=== PATIENT | female | born 1945 | race Caucasian/White ===

== ENCOUNTER 2016-04-15 12:39 | Inpatient (IN) | payer OTHER ==
--- NOTE | 2016-04-15 13:04 | CPEKG ---
Heart Rate: 116 RR Interval: 517 QRSD Interval: 146 QT Interval: 364 QTC Interval: 506 QRS [place]: -31 T Wave [place]: 129 EKG Severity - ABNORMAL ECG - EKG Impression: ATRIAL FIBRILLATION EKG Impression: LEFT BUNDLE BRANCH BLOCK EKG Impression: ATRIAL FIB IS NEW IN COMPARISON TO PRIOR, BUT LBBB IS UNCHANGED Electronically Signed By: Bhavesh Brannon 17-Apr-2016 13:08:02
[2016-04-15] MEDS ORDERED: ASPIRIN 81 MG CHEWABLE TAB ONE (13:14)
[2016-04-15 13:30] LABS: % IMMATURE GRANULYOCYTES 0.4 % (0.0-1.1); ABSOLUTE IMMATURE GRANULOCYTES 0.03 10^3/uL (0.00-0.10); ADD DIFF? NO; ADD MORPH? NO; ADD SCAN? NO; ATYPICAL LYMPHOCYTE FLAG 0 (0-99); FRAGMENT RBC FLAG 0 (0-99); HEMATOCRIT 40.9 % (38.0-47.0); HEMOGLOBIN 13.7 g/dL (12.6-16.3); LEFT SHIFT FLG 0 (0-99); LIPEMIA HEMOLYSIS FLAG 80 (0-99); MEAN CELL HEMOGLOBIN 32.7 pg (27.9-34.1); MEAN CELL HEMOGLOBIN CONCENTR. 33.5 g/dL (32.4-36.7); MEAN CELL VOLUME 97.6 fL (81.5-99.8); MEAN PLATELET VOLUME 11.5 fL (8.7-11.7); PLATELET CLUMPS FLAG 0 (0-99); PLATELET COUNT 297 10^3/uL (150-400); RED BLOOD CELL COUNT 4.19 10^6/uL (4.18-5.33); RED CELL DISTRIBUTION WIDTH 13.3 % (11.5-15.2)
[2016-04-15] MEDS ORDERED: DILTIAZEM 25 MG/5 ML VIAL IVP ONE (13:35)
--- NOTE | 2016-04-15 13:36 | UCPHY ---
H & P Patient Type: New Chief Complaint Nursing Narrative: increased sob With exertion. Chest pain / pressure since yesterday . Dizzy at times. Sent for r/o [place] Source: Patient Exam Limitations: No limitations - Personal History Current Tetanus Diphtheria and Acellular Pertussis (TDAP): Yes - Medical/Surgical History Hx Chronic Respiratory Disease: Yes Hx Cardiac Disease: Yes Other PMH: Heart surgery at 6 yo. COPD. O2 at night. Tonsils ,tubal ligation ortho surgery - Family History Significant Family History: Heart disease - Social History Smoking Status: Former smoker Time Seen by Provider: 04/15/16 12:53 HPI/ROS: CHIEF COMPLAINT: increased shortness of breath with exertion, chest pressure HISTORY OF PRESENT ILLNESS: 70-year-old female with history of coronary artery disease diabetes and COPD presents increased shortness of with exertion and an episode of chest pressure last night along with an episode this morning. Patient reports she has chronic shortness of breath with exertion, yesterday at work this felt worse, last night she had an episode of 2 to 3/10 chest heaviness that lasted for a few minutes at rest, she woke up this morning a 1 to 2/10 chest pressure that lasted a few minutes that started after getting up and walking from her bedroom to the kitchen. Patient reports no other associated symptoms. Patient uses oxygen at night. She reports a open heart surgery at age 6 for a pulmonary valvulotomy. Patient denies history of any arrhythmia. Denies CHF history. Patient's mother of an NY at age 63, father had coronary artery disease, sister with coronary artery disease and brother had an NY at age 58. Patient takes aspirin daily, quit smoking 10 years ago. No recent surgeries, no recent travel. She denies nausea, diaphoresis. Patient is seen by [facility]. She reports she had a normal stress test 1 year ago. REVIEW OF SYSTEMS: A comprehensive 10 point review of systems is otherwise negative aside from elements mentioned in the history of present illness. (Nataliia Padgett) - Physical Exam Exam: Physical Exam Gen: Alert and Oriented, NAD HEENT: PERRL, moist mucous membranes NECK: no meningismus, no jvd CV: Tachy rate and irregular rhythm, systolic murmur PULM: Diminished throughout, no wheezes ABDOMEN: Obese, soft, non tender to palpation, BS present BACK: No CVA tenderness NEURO: Neurologically grossly intact EXTREMITIES: Trace pitting edema below the knees, equal pulses x 4 extremities SKIN: no rash or break in skin on exposed skin PSYCH: answers questions appropriately. (Nataliia Padgett) Constitutional: Initial Vital Signs Temperature (C) 36.8 C 04/15/16 12:58 Heart Rate 120 H 04/15/16 12:58 Respiratory Rate 18 04/15/16 12:58 Blood Pressure 135/81 H 04/15/16 12:58 O2 Sat (%) 89 L 04/15/16 12:58 O2 Delivery Mode Room Air O2 (L/minute) 3 Allergies/Adverse Reactions: latex [Latex] Allergy (Intermediate, Verified 04/15/16 13:06) Home Medications: Medication Instructions Recorded Albuterol Hfa Anes Only [Proair 2 puffs IH DAILY PRN 04/15/16 Hfa Icu (*)] Ascorbic Acid [Vitamin C 500 mg 1,000 mg PO DAILY 04/15/16 (*)] Aspirin [Aspirin 325 mg (*)] 325 mg PO DAILY 04/15/16 Calcium Carbonate [Oyster Shell 500 mg PO DAILY 04/15/16 Calcium 500 mg (*)] Carvedilol [Coreg (*)] 6.25 mg PO BIDMEAL 04/15/16 Cholecalciferol Vit D3 [Vitamin D3 2,000 units PO DAILY 04/15/16 (*)] Furosemide [Lasix 40 MG (*)] 40 mg PO DAILY 04/15/16 [place]-3 Fatty Acids [Fish Oil 1000 1,000 mg PO DAILY 04/15/16 mg (*)] SIMVASTATIN 10 mg PO DAILY 04/15/16 Sertraline HCl [Zoloft 100mg (*)] 100 mg PO BID 04/15/16 Tiotropium Inhaler [Spiriva 18 mcg IH DAILY 04/15/16 Handihaler] Vitamin B Complex [B Complex] 1 tab PO DAILY 04/15/16 buPROPion [Wellbutrin 75mg (*)] 75 mg PO BID 04/15/16 Medical Decision Making - Diagnostics EKG Interpretation: EKG shows atrial fibrillation with a rate of 116, left bundle-branch block. EKG from 2013 shows a left bundle-branch block. (Nataliia Padgett) Imaging: Chest x-ray independently reviewed by me- IMPRESSION: 1. Persistent elevated left hemidiaphragm with surgical clips in the left axillary region. 2. Bronchitis with bilateral peribronchial thickening. 3. No definite acute pneumonia. 4. Consider CT chest imaging if clinically indicated. Dictated By: Francisco Robledo (Nataliia Padgett) ED Course/Re-evaluation: Patient was placed on the vacuum truck driver, she was given 325 mg of aspirin to chew, he was placed on oxygen. IV established, CBC, chemistry panel, troponin, BNP, D-dimer ordered, EKG, chest x-ray ordered. EKG shows a atrial fibrillation , rate 117 with a left bundle-branch block, this was compared to an EKG in 2013 where she had a left bundle branch block with a sinus arrhythmia. Patient has a history of coronary artery disease, diabetes and COPD. Last catheterization was in 2012 showing moderate coronary artery disease and a normal left ventricular systolic function. Patient reports having a normal stress test last year. Patient has a significant family history of heart disease with a mother dying of a NY at age 63, her brother and sister both with coronary artery disease, brother had an [place] at age 58. CBC an chemistry panel unremarkable, troponin is negative, D-dimer is negative, BNP is 2460. Patient is given 10 mg diltiazem IV which brought her heart rate down to 88, she continues in atrial fibrillation. She continues with no chest pain. Due to the patient's new onset atrial fibrillation, increased shortness of breath on exertion and chest pressure I think she warrants a hospital admission for cardiac rule out. The hospitalist and [facility] have been paged. 245pm- patient admitted to the hospitalist Dr. Bashir Cody. TANVIR Alaniz with [facility] was consulted and will see the patient in the hospital. The patient is comfortable with the plan for admission. She is refusing an ambulance transport to [facility] but agrees to admission and will have a family member drive her there. 4pm-patient has been assigned an inpatient room at [facility]. She will be transferred by a friend. She denies chest pain. (Nataliia Padgett) Differential Diagnosis: Diagnosis considered but not limited to new onset AFib, congestive heart failure , coronary artery disease, pulmonary embolism, COPD exacerbation. (Nataliia Padgett) Other Provider: The patient was evaluated and managed by the nurse practitioner, Nataliia Padgett. My co-signature indicates that I have reviewed this chart and I agree with the findings and plan of care as documented. I am the secondary supervising physician. (Shanon Ron) - Data Points Laboratory Results: Laboratory Results 04/15/16 13:11 04/15/16 13:11 Medications Given: Discontinued Medications Diltiazem HCl (Cardizem 25 Mg/5 Ml Vial) 10 mg IVP EDNOW ONE Stop: 04/15/16 13:36 Last Admin: 04/15/16 14:10 Dose: 10 mg Enoxaparin Sodium (Lovenox) 75 mg SC BID TREVOR Stop: 10/12/16 15:59 Last Admin: 04/15/16 16:33 Dose: 75 mg Departure - Departure Disposition: [facility] Inpatient Acute Clinical Impression: Chest pain, New onset a-fib Condition: Good - PQRS PQRS Measurement: 134: Depression screening and followup, PRIME MD-PHQ2 (12 years and older) Over the last 2 weeks, how often have you been bothered by any of the following problems? 1. Feeling down, depressed, or hopeless? 2. Little interest or pleasure in doing things? Patient answered no to both 1 and 2 130: Documentation of medications. Reviewed all patient medications, doses, route and frequency. 226: Do you smoke? No. 47: 65 and older: Advanced care planning. Patient refused. 51: 18 years old and older with diagnosis of COPD, spirometry performance. Spirometry not performed; equipment not available. 52: 18 years old and older with COPD and symptoms of COPD or FEV1<60% predicted prescribed a B Agonist. Spirometry not performed; equipment not available. (Nataliia Padgett)
[2016-04-15 13:42] LABS: INR 0.91 (0.83-1.16); PROTIME(PATIENT) 12.1 SEC (12.0-15.0)
[2016-04-15 13:43] LABS: ANION GAP 12 mEq/L (8-16); APTT 29.2 SEC (23.0-38.0); CALCIUM 9.7 mg/dL (8.5-10.4); CARBON DIOXIDE 29 mEq/l (22-31); CHLORIDE 102 mEq/L (97-110); CREATININE 0.8 mg/dL (0.6-1.0); GLOMERULAR FILTRATION RATE > 60; GLUCOSE 100 mg/dL (70-100); POTASSIUM 4.3 mEq/L (3.5-5.2); SODIUM 143 mEq/L (134-144)
[2016-04-15 13:56] LABS: TROPONIN I < 0.012 ng/mL (0-0.034)
--- NOTE | 2016-04-15 14:06 | DX ---
Chest, Two Views at 1340 hours History: Chest pain. Comparison: May 2015 Findings: Cardiac silhouette is moderately enlarged. Elevated left hemidiaphragm persists. Surgical c lips in left axillary region. Bilateral peribronchial thickening. No definite acute pneumonia. IMPRESSION: 1. Persistent elevated left hemidiaphragm with surgical clips in the left axillary region. 2. Bronchitis with bilateral peribronchial thickening. 3. No definite acute pneumonia. 4. Consider CT chest imaging if clinically indicated.
--- NOTE | 2016-04-15 15:10 | CPEKG ---
Heart Rate: 82 RR Interval: 732 QRSD Interval: 152 QT Interval: 428 QTC Interval: 500 QRS [place]: -27 T Wave [place]: 124 EKG Severity - ABNORMAL ECG - EKG Impression: ATRIAL FLUTTER, A-RATE 294 EKG Impression: LEFT BUNDLE BRANCH BLOCK Electronically Signed By: Bhavesh Brannon 17-Apr-2016 13:08:15
--- NOTE | 2016-04-15 15:37 | PDGENHP ---
History and Physical - Chief Complaint Acute shortness of breath - History of Present Illness PCP: Dr. Hardy Cardiology: Dr. Agustin HPI: 62-year-old female presenting with acute shortness of breath characterized as difficulty breathing exacerbated with exertion, associated with chest heaviness and dizziness. Onset of her shortness of breath has been several years ago but the onset of the acute worsening has been over the past 24 hours. She has use supplemental oxygen at night to alleviate her symptoms and she also utilizes albuterol inhaler fairly regularly. She reports that the shortness of breath is exacerbated by ambulation and exertion. She denies any recent lower extremity edema and reports that she has been adherent to all of her home medications. She denies any overt chest pain. She also denies any infectious symptoms. History Information - Allergies/Home Medication List Allergies/Adverse Reactions: latex [Latex] Allergy (Intermediate, Verified 04/15/16 13:06) Home Medications: Albuterol Hfa Anes Only [Proair Hfa Icu (*)] 2 puffs IH DAILY PRN 04/15/16 [ Last Taken 04/14/16] Ascorbic Acid [Vitamin C 500 mg (*)] 1,000 mg PO DAILY 04/15/16 [Last Taken ] Aspirin [Aspirin 325 mg (*)] 325 mg PO DAILY 04/15/16 [Last Taken 04/15/16] Calcium Carbonate [Oyster Shell Calcium 500 mg (*)] 500 mg PO DAILY 04/15/16 [ Last Taken 04/15/16] Carvedilol [Coreg (*)] 6.25 mg PO BIDMEAL 04/15/16 [Last Taken 04/15/16 08:00] Cholecalciferol Vit D3 [Vitamin D3 (*)] 2,000 units PO DAILY 04/15/16 [Last Taken 04/15/16] Furosemide [Lasix 40 MG (*)] 40 mg PO DAILY 04/15/16 [Last Taken 04/15/16] [place]-3 Fatty Acids [Fish Oil 1000 mg (*)] 1,000 mg PO DAILY 04/15/16 [Last Taken 04/15/16] SIMVASTATIN 10 mg PO DAILY 04/15/16 [Last Taken 04/15/16] Sertraline HCl [Zoloft 100mg (*)] 100 mg PO BID 04/15/16 [Last Taken 04/15/16 08 :00] Tiotropium Inhaler [Spiriva Handihaler] 18 mcg IH DAILY 04/15/16 [Last Taken ] Vitamin B Complex [B Complex] 1 tab PO DAILY 04/15/16 [Last Taken 04/15/16] buPROPion [Wellbutrin 75mg (*)] 75 mg PO BID 04/15/16 [Last Taken 04/15/16 08:00 ] I have personally reviewed and updated: family history, medical history, social history, surgical history - Past Medical History coronary artery disease (Last cardiac catheterization in 2012 with 70% stenosis in LAD and OM1, last nuclear stress test was October of 2015 and was reportedly nonischemic), COPD (Baseline shortness of breath), diabetes type 2 (Dietary management) Additional medical history: Left bundle branch block - Surgical History Additional surgical history: Patient had valve surgery at age 6 - Family History Additional family history: Patient's brother had heart issues and underwent CABG at age 58, her sister had cancer as well as heart issues, her mother had a myocardial infarction in her 60s - Social History Smoking Status: Former smoker Alcohol Use: Other (Former alcoholic) Drug Use: None Additional social history: Independent in her ADLs Review of Systems ROS: 10pt was reviewed & negative except for what was stated in HPI & below Cardiac: Reports: chest pain, lightheadedness Respiratory: Reports: shortness of breath Physical Exam Temp Pulse Resp BP Pulse Ox 36.8 C 84 18 122/77 H 94 04/15/16 12:58 04/15/16 14:48 04/15/16 14:48 04/15/16 14:48 04/15/16 14:48 Constitutional: no apparent distress, appears nourished, not in pain Eyes: PERRL, anicteric sclera, EOMI Ears, Nose, Mouth, Throat: moist mucous membranes, hearing normal, ears appear normal, no oral mucosal ulcers Cardiovascular: irregularly irregular, tachycardia, No systolic murmur, No edema Respiratory: reduced air movement (Reduced inspiratory and expiratory movement diffusely throughout), No expiratory wheeze, No inspiratory crackles, No bronchial breath sounds, No respiratory distress Gastrointestinal: normoactive bowel sounds, soft, non-tender abdomen, no palpable masses Skin: warm, normal color, no rashes or abrasions, no fluctuance, no induration, No mottled Neurologic: AAOx3, sensation intact bilaterally, No weakness Psychiatric: interacting appropriately, not anxious, not encephalopathic, thought process linear Lab Data & Imaging Review 04/15/16 13:11 04/15/16 13:11 WBC 7.63 10^3/uL (3.80-9.50) 04/15/16 13:11 RBC 4.19 10^6/uL (4.18-5.33) 04/15/16 13:11 Hgb 13.7 g/dL (12.6-16.3) 04/15/16 13:11 Hct 40.9 % (38.0-47.0) 04/15/16 13:11 MCV 97.6 fL (81.5-99.8) 04/15/16 13:11 MCH 32.7 pg (27.9-34.1) 04/15/16 13:11 MCHC 33.5 g/dL (32.4-36.7) 04/15/16 13:11 RDW 13.3 % (11.5-15.2) 04/15/16 13:11 Plt Count 297 10^3/uL (150-400) 04/15/16 13:11 MPV 11.5 fL (8.7-11.7) 04/15/16 13:11 Neut % (Auto) 59.1 % (39.3-74.2) 04/15/16 13:11 Lymph % (Auto) 27.9 % (15.0-45.0) 04/15/16 13:11 Clinch % (Auto) 9.6 % (4.5-13.0) 04/15/16 13:11 Eos % (Auto) 2.2 % (0.6-7.6) 04/15/16 13:11 Baso % (Auto) 0.8 % (0.3-1.7) 04/15/16 13:11 Nucleat RBC Rel Count 0.0 % (0.0-0.2) 04/15/16 13:11 Absolute Neuts (auto) 4.51 10^3/uL (1.70-6.50) 04/15/16 13:11 Absolute Lymphs (auto) 2.13 10^3/uL (1.00-3.00) 04/15/16 13:11 Absolute Monos (auto) 0.73 10^3/uL (0.30-0.80) 04/15/16 13:11 Absolute Eos (auto) 0.17 10^3/uL (0.03-0.40) 04/15/16 13:11 Absolute Basos (auto) 0.06 10^3/uL (0.02-0.10) 04/15/16 13:11 Absolute Nucleated RBC 0.00 10^3/uL (0-0.01) 04/15/16 13:11 Immature Gran % 0.4 % (0.0-1.1) 04/15/16 13:11 Immature Gran # 0.03 10^3/uL (0.00-0.10) 04/15/16 13:11 PT 12.1 SEC (12.0-15.0) 04/15/16 13:11 INR 0.91 (0.83-1.16) 04/15/16 13:11 APTT 29.2 SEC (23.0-38.0) 04/15/16 13:11 D-Dimer 0.29 ug/mLFEU (0.00-0.50) 04/15/16 13:11 Sodium 143 mEq/L (134-144) 04/15/16 13:11 Potassium 4.3 mEq/L (3.5-5.2) 04/15/16 13:11 Chloride 102 mEq/L (97-110) 04/15/16 13:11 Carbon Dioxide 29 mEq/l (22-31) 04/15/16 13:11 Anion Gap 12 mEq/L (8-16) 04/15/16 13:11 BUN 20 mg/dL (7-23) 04/15/16 13:11 Creatinine 0.8 mg/dL (0.6-1.0) 04/15/16 13:11 Estimated GFR > 60 04/15/16 13:11 Glucose 100 mg/dL (70-100) 04/15/16 13:11 Calcium 9.7 mg/dL (8.5-10.4) 04/15/16 13:11 Troponin I < 0.012 ng/mL (0-0.034) 04/15/16 13:11 NT-Pro-B Natriuret Pep 2460 pg/mL (0-125) H 04/15/16 13:11 Visualized and Interpreted Chest x-ray results: Yes Chest X-Ray results: other (Peribronchial thickening, elevated left hemidiaphragm) Visualized and Interpreted EKG results: Yes EKG Interpretation: Positive for: left bundle branch block (With atrial fibrillation) Assessment & Plan Assessment: 70-year-old female presenting with new onset atrial fibrillation with acute rapid ventricular response in the setting of known coronary artery disease Plan: 1. Atrial fibrillation. Acute, rapid ventricular response, new problem, further workup indicated. Unclear precipitant, given her underlying coronary artery disease, ischemia is a significant concern vs. COPD vs. beta-agonist effect -cycle cardiac enzymes -discussed with Nataliia Padgett and Dr. Ron in urgent care, they have recommended that this patient be risk stratified under observation and the patient is unsafe to be discharged from the urgent care at this time -status post 10 mg of IV diltiazem with improvement in rate but remaining in an atrial fibrillation rhythm -given the patient received carvedilol at baseline, I will increase carvedilol dosing to 12.5mg at this time and monitor for acute rapid ventricular response on telemetry -provide systemic anticoagulation given patient's potential of chemically cardioverting versus DC cardioversion tomorrow -given patient's chads Vasc score, she will require systemic anticoagulation moving forward as an outpatient -I have consulted with Cardiology and they will evaluate the patient determine whether she should undergo cardiac catheterization tomorrow to rule out obstructive coronary disease as the cause of her new onset AFib 2. Coronary artery disease. Chronic, continue home medications once reconciled -monitor for signs of acute CHF in the setting of above -cont ASA/statin -get lipid panel 3. COPD. Chronic, treat cough -poor exp air movement, place on schedule xopenex/atrovent nebs and reassess in AM, hold on steroids Diet. Cardiac with NPO after midnight for possible cath in a.m. Prophylaxis. High risk patient, therapeutic Lovenox for AFib Code. Full Disposition. Anticipated discharge is 04/16/2016, pending further workup and clinical stabilization of condition outlined above. If patient requires greater than 48 hours inpatient hospitalization for reasonable medical necessity , she will be upgraded to inpatient status tomorrow.
[2016-04-15] MEDS ORDERED: ENOXAPARIN 80 MG/0.8 ML SYR SC SCH (16:00)
[2016-04-15] MEDS ORDERED: ENOXAPARIN 80 MG/0.8 ML SYR SC ONE (16:22)
[2016-04-15] MEDS: ENOXAPARIN 80 MG/0.8 ML SYR SC SCH (18:21)
[2016-04-15] MEDS: CARVEDILOL 6.25 MG TAB PO SCH (20:55)
[2016-04-15] MEDS: buPROPion 75 MG TAB PO SCH (20:55)
[2016-04-15] MEDS: LEVALBUTEROL 0.63 MG/3 ML DEYVIAL IH SCH ×2 (20:56→22:12)
[2016-04-15] MEDS: IPRATROPIUM BROMIDE 0.5 MG/2.5 ML DEYVIAL IH SCH ×2 (20:56→22:12)
[2016-04-15] MEDS: SERTRALINE HCL 100 MG TAB PO SCH (20:57)
[2016-04-16 04:02] LABS: % IMMATURE GRANULYOCYTES 0.3 % (0.0-1.1); ABSOLUTE IMMATURE GRANULOCYTES 0.02 10^3/uL (0.00-0.10); ADD DIFF? NO; ADD MORPH? NO; ADD SCAN? NO; ATYPICAL LYMPHOCYTE FLAG 10 (0-99); FRAGMENT RBC FLAG 0 (0-99); HEMATOCRIT 40.3 % (38.0-47.0); HEMOGLOBIN 13.1 g/dL (12.6-16.3); LEFT SHIFT FLG 0 (0-99); LIPEMIA HEMOLYSIS FLAG 80 (0-99); MEAN CELL HEMOGLOBIN CONCENTR. 32.5 g/dL (32.4-36.7); MEAN CELL VOLUME 98.5 fL (81.5-99.8); PLATELET CLUMPS FLAG 10 (0-99); PLATELET COUNT 241 10^3/uL (150-400); RED BLOOD CELL COUNT 4.09 10^6/uL (4.18-5.33); RED CELL DISTRIBUTION WIDTH 13.4 % (11.5-15.2)
[2016-04-16 04:22] LABS: ANION GAP 11 mEq/L (8-16); CALCIUM 8.9 mg/dL (8.5-10.4); CARBON DIOXIDE 29 mEq/l (22-31); CHLORIDE 107 mEq/L (97-110); CHOLESTEROL 126 mg/dL (140-220); CHOLESTEROL/HDL RATIO 2.25 RATIO (1.00-4.44); GLOMERULAR FILTRATION RATE 55; GLUCOSE 91 mg/dL (70-100); HIGH DENSITY LIPOPROTEIN 56 mg/dL (40-85); LDL/HDL RATIO 0.88 RATIO (1.00-3.22); LOW DENSITY LIPOPROTEIN 49 mg/dL (80-100); NON-HIGH DENSITY LIPOPROTEIN 70 mg/dL (90-129); POTASSIUM 4.2 mEq/L (3.5-5.2); SODIUM 147 mEq/L (134-144); TRIGLYCERIDE 106 mg/dL (35-135); VERY LOW DENSITY LIPOPROTEINS 21 mg/dL (8-25)
[2016-04-16] MEDS: IPRATROPIUM BROMIDE 0.5 MG/2.5 ML DEYVIAL IH SCH ×4 (06:22→23:38)
[2016-04-16] MEDS: LEVALBUTEROL 0.63 MG/3 ML DEYVIAL IH SCH ×4 (06:22→23:38)
[2016-04-16] MEDS: CARVEDILOL 6.25 MG TAB PO SCH ×2 (08:26→20:11)
[2016-04-16] MEDS ORDERED: ASPIRIN 325 MG TAB PO SCH ×2 (09:00→15:45)
[2016-04-16] MEDS ORDERED: ASPIRIN EC 325 MG TAB PO ONE (10:26)
[2016-04-16] MEDS ORDERED: NITROGLYCERIN 0.4 MG BTL SL PRN (10:26)
[2016-04-16] MEDS ORDERED: diphenhydrAMINE 25 MG CAP PO ONE (10:26)
[2016-04-16] MEDS ORDERED: ACETAMINOPHEN 325 MG TAB PO PRN (10:26)
[2016-04-16] MEDS ORDERED: DIAZEPAM 5 MG TAB PO ONE (10:26)
[2016-04-16] MEDS ORDERED: TEMAZEPAM 15 MG CAP PO PRN (10:26)
[2016-04-16] MEDS ORDERED: NS 1,000 ML IV SCH (10:30)
--- NOTE | 2016-04-16 10:44 | HOSPPROG ---
Hospitalist Progress Note Assessment/Plan: ASSESSMENT/PLAN: # atrial fibrillation - on lovenox/coreg - ANETTE/DCCV today # CAD with moderate disease, shortness of breath, chest tightness - LHC/RHC today - asa/statin # history of pulmonic stenosis status post valvulotomy # COPD with mild wheezing on exam, chronic respiratory failure on 3 L of O2 at night - continue Xopenex for now, consider steroids if this worsens # FCFT # dispo: Inpatient; needs greater than 2 midnights for treatment and evaluation of the above given multiple procedures, COPD with chronic respiratory failure and wheezing SUBJECTIVE: Some wheezing today; still ongoing shortness of breath OBJECTIVE: Vitals reviewed Comfortable, no acute distress Regular rate and rhythm, no murmurs rubs or gallops No respiratory distress, lungs clear to auscultation bilaterally; wheezes on forced expiration, no rales or rhonchi Abdomen with normal bowel sounds, soft, nontender, nondistended LABORATORY DATA: Indeterminate troponin, BNP 1999 IMAGING: Chest x-ray personally interpreted, elevated left hemidiaphragm ECG: AFib, left bundle branch block - this is old Objective: Vital Signs Temp Pulse Resp BP Pulse Ox 36.3 C 100 15 115/74 95 04/16/16 07:58 04/16/16 07:58 04/16/16 07:58 04/16/16 07:58 04/16/16 07:58 Laboratory Results 04/16/16 03:42 04/16/16 03:42 PT 12.1 SEC (12.0-15.0) 04/15/16 13:11 INR 0.91 (0.83-1.16) 04/15/16 13:11 ICD10 Worksheet Patient Problems: Problems Problem Status Diagnosed Chest pain Acute New onset a-fib Acute
[2016-04-16] MEDS ORDERED: FAMOTIDINE 20 MG TAB ONE (11:01)
[2016-04-16] MEDS ORDERED: ETOMIDATE 40 MG/20 ML INJ ONE (11:02)
[2016-04-16] MEDS ORDERED: MIDAZOLAM 2 MG/2 ML VIAL ONE ×2 (11:03→11:07)
[2016-04-16] MEDS: ASCORBIC ACID 500 MG TAB PO SCH (11:05)
[2016-04-16] MEDS: buPROPion 75 MG TAB PO SCH ×2 (11:05→20:11)
[2016-04-16] MEDS ORDERED: LIDOCAINE 1% 30 ML SDV ONE (11:06)
[2016-04-16] MEDS ORDERED: fentaNYL 100 MCG/2 ML INJ ONE ×2 (11:06→13:48)
[2016-04-16] MEDS: CALCIUM CARBONATE 500 MG TAB PO SCH (11:06)
[2016-04-16] MEDS: FUROSEMIDE 40 MG TAB PO SCH (11:06)
[2016-04-16] MEDS: CHOLECALCIFEROL VIT D3 2,000 UNITS TAB/CAP PO SCH (11:06)
[2016-04-16] MEDS ORDERED: IOPAMIDOL (ISOVUE-370) 150 ML BTL IV ONE ×2 (11:07→13:45)
[2016-04-16] MEDS: ENOXAPARIN 80 MG/0.8 ML SYR SC SCH (11:10)
--- NOTE | 2016-04-16 11:50 | GCON ---
[f rep st] CONSULTATION CARDIOLOGY CONSULTATION We were asked by Dr. Cody to evaluate Ms. German for her worsening dyspnea and noted chest pressure over the past couple of days. Also, she has new onset atrial fibrillation. PRIMARY SOURCING COORDINATOR: Dr. Agustin. HISTORY OF PRESENT ILLNESS: Ms. Kiara German is a 70-year-old female with a known past medical history of pulmonic stenosis status post valvulotomy at age 6 , type 2 diabetes mellitus on diet and exercise control, dyslipidemia, moderate CAD involving the LAD and RCA without previous PCI, pulmonary hypertension, COPD, nocturnal hypoxia on oxygen therapy, who is admitted with worsening dyspnea. She has chronic dyspnea, but over the past couple of days she has noted a very significant heaviness in her chest present with exertion. A couple of days ago while at work at [employer] and was not able to push her needed equipment, which is unusual for her. She went home early that day and continued to feel poorly. Yesterday, she called her PCP's office and was advised to go to the urgent care. With her above complaints and the discovery of new onset atrial fibrillation, she was sent over for further evaluation and testing. Currently, she reports that her dyspnea is better. She does note episodic edema , especially when she is on her feet at work. She denies any PND, orthopnea, palpitations, presyncope or syncope. She has had some mild lightheadedness. PAST MEDICAL HISTORY: 1. Former alcoholism. 2. COPD. 3. Former smoker. 4. Coronary artery disease. 5. Depression. 6. Type 2 diabetes mellitus, on diet control. 7. History of breast cancer. 8. History of osteopenia. 9. Nocturnal hypoxia, on O2. 10. History of pulmonic stenosis. PAST SURGICAL HISTORY: Lumpectomy and pulmonic valvuloplasty. MEDICATIONS: These include vitamin B, vitamin D, vitamin C, Spiriva, calcium, Zoloft, simvastatin, albuterol, Rumson-3 fatty acids, furosemide, carvedilol, bupropion, aspirin. ALLERGIES: Latex. FAMILY HISTORY: Diabetes and CAD. SOCIAL HISTORY: Patient is . She is a former smoker and former alcohol drinker. REVIEW OF SYSTEMS: As per HPI. A complete 10-point review of systems was obtained and is negative except for what is dictated. PHYSICAL EXAM: VITAL SIGNS: BP 115/74, heart rate 100, respirations 15, O2 saturation 95% on 3 L/minute, temp of 97.3 degrees Fahrenheit. GENERAL: She is a very pleasant female in no apparent distress. EYES: SHI without scleral icterus. NECK: Supple without JVD present. HEART: Irregularly irregular with a 2 to 3 out of 6 systolic ejection murmur. LUNGS: Diminished but without crackles or rhonchi auscultated bilaterally. ABDOMEN: Soft with normoactive bowel sounds and without distention. SKIN: Warm and dry without edema. PSYCH: Normal mood and affect. : No Avila present. LABORATORY DATA: CBC with WBC 6.14, hemoglobin 13.1, hematocrit 40.3, platelet count of 241. D-dimer is negative at 0.29. Sodium 147, potassium 4.2, chloride 107, CO2 29, BUN 22, creatinine 1, glucose of 91. NT-proBNP of 2460. Total cholesterol 126, triglycerides 106, LDL 49, HDL of 56. Troponin values of less than 0.012 and 0.02. 12-lead ECG, personally interpreted, demonstrates atrial fibrillation with a left bundle branch block, which is known but the AFib is of new onset. IMPRESSION AND PLAN: Ms. Brian German is a 70-year-old female well known to us from the clinic setting. She presents with worsening dyspnea and chest tightness. 1. Chest tightness. She has a new onset of chest tightness worrisome for angina with minimal exertion, which puts her at CCS class 3 symptoms. We reviewed options and patient is agreeable to a left heart catheterization for further evaluation. Risks, benefits, and alternatives reviewed with her. 2. Worsening shortness of breath. She has known chronic obstructive pulmonary disease but also has valvular heart disease. We will proceed to a right heart catheterization at the time of her left heart cath. 3. New onset atrial fibrillation. Her risk factors for thromboembolism are age , hypertension, female, and diabetes, which puts her at a CHADS-VASc of at least 4. She will be started on anticoagulation with NOAC. We will initiate anticoagulation with Eliquis and plan for at least 1 month of therapy. 4. Known coronary artery disease. She has been medically managed with statin, aspirin, and beta costa, for several years. Await results of cardiac catheterization. 5. Chronic obstructive pulmonary disease. She has known chronic obstructive pulmonary disease that has been managed in the outpatient setting. This is likely contributing to her current symptomatology. She may need pulmonary evaluation as an outpatient to improve management of her COPD. More recommendations will follow further testing with right and left heart catheterization as well as ANETTE cardioversion. /[id number]/MODL MTDD
--- NOTE | 2016-04-16 11:56 | PDTEE1 ---
ANETTE Cardioversion Procedure Procedure: Electrical Cardioversion Indications: Atrial Fibrillation Consent: Signed and in Chart Procedural Details: The patient was appropriately sedated and pads were placed in anterior- posterior position. The ANETTE probe was advanced and standard images obtained, revealing no evidence of left atrial or left atrial appendage thrombus. We proceeded with 300 Joules of biphasic countershock with successful return to normal sinus rhythm. Pulse was documented to be 82 BPM, blood pressure 135/59 mmHg. Synchronized cardioversion attempt #1: 300J Results: Normal sinus rhythm Conclusions: Successful ANETTE Cardioversion Patient Problems: Problems Problem Status Diagnosed Chest pain Acute New onset a-fib Acute
[2016-04-16] MEDS ORDERED: HEPARIN 10,000 UNIT/10 ML MDV ONE (12:42)
[2016-04-16] MEDS ORDERED: VERAPAMIL 5 MG/2 ML VIAL ONE (12:42)
--- NOTE | 2016-04-16 13:22 | PDDXCAT ---
Diagnostic Cath Note - . Date: 04/16/16 Title Supervisor: Pietro Indication: CCC Class III and IV angina on medical treatment, other (Worsening shortness of breath, r/u pulmonary artery to LA fistula) - Procedure Access: right wrist (A plethysmography trace assisted Juwan's Test was used to document dual artery supply to the hand and index finger prior to access. Catheterization proved difficult from a right radial approach; If repeat catheterization is necessary, I would recommend a femoral approach.) Procedure: left heart catheterization, coronary angiography, left ventriculogram , right heart catheterization, other (Pulmonary angiogram) - Materials Left Heart Cath size: 5F Left Heart Cath materials: JL3.5, JR4.0, pigtail, other (0.018 Three [employer]iliated Plus Wire) Right Heart Cath size: 5F Right Heart Cath materials: PWP catheter - Findings-Left Heart Catheterization LM: 5mm in size. Trifurcates into an LAD, ramus and circumflex system. No significant disease is identified. LAD: Maximal luminal stenosis of 25% on the basis of QCA with GAEL III flow. There was also a 50% ostial diagonal lesion with GAEL III flow. LCX: No flow-limiting disease is identified with GAEL III flow throughout. RCA: Dominant. ~3.5 mm in size. Maximal luminal stenosis of 30% in the mid right coronary artery. Free of flow-limiting disease with GAEL III flow throughout. Ramus: Large vessel without flow-limiting disease and GAEL III flow throughout. EDP: 38 mmHg LVEF: 50% Wall motion: Distal anterior wall and apical hypokinesis. The visualized protion of the thoracic aorta revealed three sinuses of Valsalva. There was no evidence of aneurysm or dissection. Pulmonary angiogram was also performed which revealed evidence of a moderately sized pulmonary artery dilation as well as a diverticulum of her right ventricular outflow tract. The main pulmonary trunk and proximal right and left pulmonary arteries appeared dilated. A definite fistula or communication was not identified. - Findings-Right Heart Catheterization RA: 30/34/30 mmHg; SVC SAT = 82.9% RV: 75/32/40 mmHg PA: 71/43/54 mmHg; PA SAT = 61.9% PAOP: Unable to measure AO: LV pressure: 61/6/20 mmHg; AO SAT = 91.6% CO: 4.27 L/min CI: 2.36 L/min/m^2 Complications: None Estimated blood loss: <50ml Closure method: TR Band Assessment: 1. Non-flow limiting coronary artery disease with maximal luminal stenosis of 50% in a small ostial diagonal vessel, 25% in the mid LAD and 30% in the mid right coronary artery (GAEL III flow throughout all of these lesions) . The patient's coronary circulation appeared essentially unchanged compared to her last angiogram dated 02/12/2013. 2. Normal ejection fraction estimated to be 55% with mild anterior and apical hypokinesis on LVG. 3. Significant dilation of the proximal main pulmonary artery which extends into the right and left pulmonary artery trunks suggestive of a pulmonary artery aneurysm. Pulmonary artery stenosis could not be ruled out. There is significant pulmonic insufficiency as well which may be secondary to the catheter position. 4. Marked dilation of the left hemidiaphragm which dose not move with inspiration and consistent with left hemidiaphragm paralysis. This is caused from significant volume loss and lung disease on the left side. 5. Severely elevated right heart pressures consistent with pulmonary HTN. Plan: 1. The patient's coronary artery disease should be managed with medication and PCI and stent implantation is not warranted at the present time. 2. Pulmonary CTA to rule out chronic thromboembolic disease as cause for this patient's pulmonary hypertension, as well as to evaluate the true size of the proximal pulmonary arteries and to rule in or out pulmonary artery aneurysm. THIS PATIENT HAS SEVERE PULMONARY HYPERTENSION OF UNKNOWN ETIOLOGY... THE CAUSE OF HER SHORTNESS OF BREATH IS ALMOST CERTAINLY THE PULMONARY HYPERTENSION AND THE PARALYSIS OF HER LEFT HEMIDIAPHRAGM. Patient Problems: Problems Problem Status Diagnosed Chest pain Acute New onset a-fib Acute
--- NOTE | 2016-04-16 15:11 | CPEKG ---
Heart Rate: 76 RR Interval: 789 P-R Interval: 164 QRSD Interval: 152 QT Interval: 436 QTC Interval: 491 P Waterford: 61 QRS [place]ford: -24 T Wave [place]: 125 EKG Severity - ABNORMAL ECG - EKG Impression: SINUS RHYTHM EKG Impression: ATRIAL PREMATURE COMPLEX EKG Impression: LEFT BUNDLE BRANCH BLOCK EKG Impression: SINUS RHYTHM HAS REPLACED ATRIAL FLUTTER NOTED ON PRIOR ECG Electronically Signed By: Bhavesh Brannon 17-Apr-2016 13:09:02
--- NOTE | 2016-04-16 16:18 | ECHO ---
[id number] + + [address] : : [place] [address] : : [phone] + Transesophageal Echocardiographic Report + ---------+ :Name: SABINE SQUIRES Date: 04/16/2016 11:38 AM : : Hospital Admission Number: [id number] Loca tion: CVC: :: 1945 Gender: Female Height: 64 i n : :Age: 70 yrs Race: WH Weight: 166 lb : :Reason For Study: Eval LV Fx : : BSA: 1.8 met ers2 : :History: Pre Cardioversion : + ---------+ Procedure With heart rate, blood pressure and oximetry monitered the patient was administered IV Versed, fentanyl and the bite block in place, the throat was anesthetized with topical spray. The Omniplane transesophageal probe was passed without difficulty. LV Ejection Fraction = 30-35%. The rhythm is atrial fibrillation. Atria There appears to be gkoid-ic-ykis flow from the PA to the DURAN. The atrial septum is aneurysmal. Injection of contrast documented an interatrial shunt. A patent foramen ovale is present. Mitral Valve The mitral valve is normal in structure and function. There is no mitral valve stenosis. There is mild mitral regurgitation. Aortic Valve The aortic valve is normal in structure and function. The aortic valve is trileaflet. There is no aortic stenosis. There is no aortic insufficiency. Pulmonic Valve The pulmonic valve is normal in structure and function. There is no pulmonic valvular regurgitation. Tricuspid Valve Normal tricuspid valve. Pericardium There is no pericardial effusion. Conclusion A 2D transesophageal echocardiogram with color flow Doppler was performed. Ejection Fraction = 30-35%. The rhythm is atrial fibrillation. There appears to be small amount of chyrw-od-asun flow from the PA to the left atrium or left atrial appendage The atrial septum is markedly aneurysmal. Injection of contrast documented an interatrial shunt. A patent foramen ovale is present. The mitral valve is normal in structure and function. There is mild mitral regurgitation. The aortic valve is normal in structure and function. The aortic valve is trileaflet. Proceeded with successful elective DC cardioversion. Final Reading Physician: Ridge Tabor signed on 04/16/2016 04:17 PM Ordering Physician: Katty Mendoza Performed By: Dick Westbrook MD
[2016-04-16] MEDS: ASPIRIN 81 MG CHEWABLE TAB PO SCH (19:44)
[2016-04-16] MEDS: VITAMIN B COMPLEX 1 EA CAP/TAB PO SCH (19:50)
[2016-04-16] MEDS: SERTRALINE HCL 100 MG TAB PO SCH ×2 (19:51→20:12)
[2016-04-16] MEDS: PRAVASTATIN SODIUM 20 MG TAB PO SCH (19:51)
[2016-04-16] MEDS: OMEGA-3 FATTY ACIDS 1,000 MG CAP PO SCH (19:51)
[2016-04-16] MEDS: APIXABAN 5 MG TAB PO SCH (20:20)
[2016-04-17] MEDS: IPRATROPIUM BROMIDE 0.5 MG/2.5 ML DEYVIAL IH SCH ×4 (06:15→23:40)
[2016-04-17] MEDS: LEVALBUTEROL 0.63 MG/3 ML DEYVIAL IH SCH ×4 (06:15→23:40)
--- NOTE | 2016-04-17 08:44 | HOSPPROG ---
Hospitalist Progress Note Assessment/Plan: #Atrial fibrillation -successful cardioversion, 04/16 -Niyah Soto #CAD -cath showed non-flow limiting -cont med management with ASA, BB, statin #h/o pulmonic stenosis -s/p valvulotomy #Chronic hypoxemic resp failure -due to COPD -concern for chronic PE; CTA pending #COPD: Nebs #Diet: regular #DVT px: Eliquis #Disp: warrants admission to monitor for arrhythmia Subjective: No acute events overnight Objective: Vital Signs Temp Pulse Resp BP Pulse Ox 36.6 C 74 20 140/65 H 90 L 04/17/16 07:51 04/17/16 07:51 04/17/16 07:51 04/17/16 07:51 04/17/16 07:51 04/16/16 04/17/16 04/18/16 05:59 05:59 05:59 Intake Total 1380 Balance 1380 PT 12.1 SEC (12.0-15.0) 04/15/16 13:11 INR 0.91 (0.83-1.16) 04/15/16 13:11 - Physical Exam Constitutional: no apparent distress Eyes: PERRL Ears, Nose, Mouth, Throat: moist mucous membranes Cardiovascular: regular rate and rhythym Respiratory: no respiratory distress Gastrointestinal: normoactive bowel sounds Genitourinary: no bladder fullness Skin: warm Musculoskeletal: full muscle strength Neurologic: AAOx3 Psychiatric: interacting appropriately ICD10 Worksheet Patient Problems: Problems Problem Status Diagnosed Chest pain Acute New onset a-fib Acute
[2016-04-17] MEDS: ASPIRIN 81 MG CHEWABLE TAB PO SCH (09:10)
[2016-04-17] MEDS: CARVEDILOL 6.25 MG TAB PO SCH ×2 (09:10→18:40)
[2016-04-17] MEDS: VITAMIN B COMPLEX 1 EA CAP/TAB PO SCH (09:10)
[2016-04-17] MEDS: APIXABAN 5 MG TAB PO SCH ×2 (09:10→19:59)
[2016-04-17] MEDS: OMEGA-3 FATTY ACIDS 1,000 MG CAP PO SCH (09:10)
[2016-04-17] MEDS: ASCORBIC ACID 500 MG TAB PO SCH (09:11)
[2016-04-17] MEDS: CHOLECALCIFEROL VIT D3 2,000 UNITS TAB/CAP PO SCH (09:12)
[2016-04-17] MEDS: PRAVASTATIN SODIUM 20 MG TAB PO SCH (09:12)
[2016-04-17] MEDS: buPROPion 75 MG TAB PO SCH ×2 (09:12→19:59)
[2016-04-17] MEDS: SERTRALINE HCL 100 MG TAB PO SCH ×2 (09:12→19:59)
[2016-04-17] MEDS: CALCIUM CARBONATE 500 MG TAB PO SCH (09:12)
[2016-04-17] MEDS: FUROSEMIDE 40 MG TAB PO SCH (09:12)
[2016-04-17] MEDS ORDERED: NS 1,000 ML IV SCH ×2 (12:30)
[2016-04-17] MEDS ORDERED: LORazepam 0.5 MG TAB PO ONE (13:34)
[2016-04-17] MEDS ORDERED: IOPAMIDOL (ISOVUE 370) 100 ML BTL IV ONE (15:13)
--- NOTE | 2016-04-17 15:55 | CT ---
CT Pulmonary Angiogram History: Enlarged pulmonary arteries, new onset atrial fibrillation. Comparison: PA and lateral chest April 15, 2016, CT chest September 26, 2008. Technique: Axial contrast-enhanced images were obtained through the chest following the uneventful in travenous administration of 90 mL Isovue-370. Creatinine is 1.0. Multiplanar reformations were perfo rmed through the pulmonary arteries. Dose reduction techniques were utilized. Findings: Visualization of peripheral segmental and subsegmental vessels is slightly limited by respi ratory motion. There is no pulmonary embolus. Marked enlargement of the pulmonary arteries is similar to the previous CT, consistent with pulmonary artery hypertension. Marked elevation of the left christoph diaphragm is again noted. Mild basilar atelectasis is present. Heart size is upper normal. The interv entricular septum is normal. The aorta is normal caliber with mild atherosclerosis without dissection . No pathologically enlarged lymph nodes are identified. Mild degenerative change is present in the s pine. A 5.6 cm simple cyst is present in the left kidney. Impression: 1. Enlarged pulmonary arteries consistent with pulmonary artery hypertension with no visible pulmonar y embolus. 2. Chronic marked elevation of the left hemidiaphragm. 3. Additional findings as above. Findings discussed with Katty Mendoza today at 1552 hours.
--- NOTE | 2016-04-17 21:55 | GPROG ---
[f rep st] PROGRESS NOTE DATE OF SERVICE: 04/17/2016 HISTORY OF PRESENT ILLNESS: The patient is a 70-year-old female with a past medical history significant for a purported history of COPD, who presented to the Emergency Department for new onset supraventricular tachycardia, as well as worsening shortness of breath and chest discomfort. She noticed these symptoms while she was at work today preceding her admission to the hospital on the . The patient was evaluated and admitted by Dr. Bhavesh Cody. We were asked to see the patient in consultation on the and ultimately the patient underwent right and left heart catheterization under my care because of the chest pain and shortness of breath, as well as a history of congenital heart disease and pulmonary valvotomy at age 6. I also performed a pulmonary angiogram to evaluate the patient's pulmonary arteries because her pulmonary arteries seemed to be quite dilated. There was no evidence of pulmonic stenosis on the basis of pull-back across the pulmonic valve, but the patient was found to have severe pulmonary hypertension with pulmonary pressures measured as high as 72 with a mean pulmonary pressure of 58. It is not clear to me that this patient has COPD as has been purported in her medical record, but she does have a significant elevation of the left hemidiaphragm, which was noted to be paralyzed and have paradoxical upward motion with downward motion of the right hemidiaphragm with a so-called sniff test during the right and left heart catheterization. The patient did not have evidence of coronary artery disease of significance. There was plaque formation. Please see the previously described report for full details. This was compared to a prior study, as noted, and did not seem to be significantly changed. There may be a napkin ring stenosis of the LAD. However, this is very unlikely to be causing the patient's overall clinical picture. The patient was successfully cardioverted from atrial flutter and the patient was also noted on the ANETTE to have a marked interatrial aneurysm with bidirectional motion of the interatrial septum, which was very thin. Over approximately 1/3 to almost 1/2 of the total interatrial septum was a very thin membrane with multiple small fenestrations, most consistent with a PFO, although ASD could not be ruled out. PHYSICAL EXAMINATION: GENERAL: At the time of my evaluation today, the patient denies worsening chest pain or shortness of breath. VITAL SIGNS: Reveal a blood pressure of 144/72, a mean pressure of 96, heart rate 73, respirations 18 and unlabored, oxygen saturation is 99%, but earlier this morning was noted to be 77% on room air. NECK: Reveals mild jugular venous distention. HEART: Normal S1, S2 with a systolic murmur consistent with tricuspid regurgitation. LUNGS: Clear with decreased air movement over the left lung, with dullness to percussion as well. ABDOMEN: Benign with positive bowel sounds. It is nondistended and nontender. EXTREMITIES: Cool and dry with trace peripheral edema. LABORATORY STUDIES: Reveal a white count of 6.14, an H and H of 13.1 and 40.3, with a platelet count of 241. The patient's chemistries reveal a sodium of 147 , a BUN and creatinine of 22 and 1.02, GFR of 55. Troponin I of 0.020. N- terminal proBNP on the was 2460 with a relatively low cholesterol 126 total, LDL of 49, HDL of 56, and non HDL cholesterol of 70. IMPRESSION AND PLAN: This patient has systemic, but more importantly, severe pulmonary hypertension. A CT scan of the pulmonary arteries was performed today to deal with 3 separate issues. One was to rule out chronic thromboembolic disease for which the study was negative. It was also to rule out a pulmonary artery aneurysm and, finally, to rule out pulmonary artery stenosis. The patient's CT scan of the chest was compared to an old chest x- ray revealing chronic elevation of the left hemidiaphragm, which is also quite marked. The patient also has enlarged proximal pulmonary arteries consistent with pulmonary hypertension and no evidence of visible pulmonary thromboembolic disease was noted. A 5.6 cm simple cyst is present in the left kidney, which was the only other important finding. The last CT scan of the chest here at this institution was September 26, 2008, and apparently the pulmonary artery dilation was present on that study as well. The left hemidiaphragm elevation was of course present on the PA and lateral chest x-ray April 15 and during this admission. The patient appears to have severe pulmonary hypertension which may be secondary to adult congenital heart disease, although it is not apparent that she has significant pulmonic valve stenosis on the basis of both transesophageal echo, where the valve was shown to be opening normally. There is no evidence of significant pulmonic insufficiency on the transesophageal echo , and also no evidence of a gradient upon pullback across the pulmonic valve. The patient clearly has a very thin and prominent interatrial aneurysm with a positive bubble study which is at least positive for a patent foramen ovale. A more important ASD could not be ruled out. However, a definite defect was not noted on the transesophageal echo. My primary diagnosis in this patient is that the patient has markedly elevated pulmonary artery pressure consistent with pulmonary hypertension of unknown etiology. She also has an elevated and paralyzed left hemidiaphragm which is also causing some degree of restrictive lung disease on the left side, as the left lung is fairly dramatically compressed by abdominal contents and the elevated left hemidiaphragm. I think her shortness of breath is primarily related to those issues, although certainly the atrial flutter and associated impaired LV dysfunction was not helpful in that regard. I think this patient should potentially be seen at the [facility] in a pulmonary hypertension clinic , or at [facility] for the same indication. She is clearly not on standard medications if ultimately she is proven to have primary pulmonary hypertension, which of course is on the differential diagnosis of this patient' s pulmonary pressure elevation. Another consideration may be to have her seen in an adult congenital heart disease clinic also at the [facility]. /[id number]/MODL MTDD
[2016-04-18 05:15] LABS: ANION GAP 9 mEq/L (8-16); CALCIUM 8.4 mg/dL (8.5-10.4); CARBON DIOXIDE 30 mEq/l (22-31); CHLORIDE 104 mEq/L (97-110); CREATININE 0.8 mg/dL (0.6-1.0); GLOMERULAR FILTRATION RATE > 60; GLUCOSE 99 mg/dL (70-100); POTASSIUM 4.3 mEq/L (3.5-5.2); SODIUM 143 mEq/L (134-144)
[2016-04-18] MEDS: IPRATROPIUM BROMIDE 0.5 MG/2.5 ML DEYVIAL IH SCH (05:33)
[2016-04-18] MEDS: LEVALBUTEROL 0.63 MG/3 ML DEYVIAL IH SCH (05:33)
[2016-04-18] MEDS: OMEGA-3 FATTY ACIDS 1,000 MG CAP PO SCH (08:30)
[2016-04-18] MEDS: CHOLECALCIFEROL VIT D3 2,000 UNITS TAB/CAP PO SCH (08:30)
[2016-04-18] MEDS: APIXABAN 5 MG TAB PO SCH (08:30)
[2016-04-18] MEDS: CARVEDILOL 6.25 MG TAB PO SCH (08:31)
[2016-04-18] MEDS: ASPIRIN 81 MG CHEWABLE TAB PO SCH (08:31)
[2016-04-18] MEDS: VITAMIN B COMPLEX 1 EA CAP/TAB PO SCH (08:31)
[2016-04-18] MEDS: PRAVASTATIN SODIUM 20 MG TAB PO SCH (08:31)
[2016-04-18] MEDS: ASCORBIC ACID 500 MG TAB PO SCH (08:32)
[2016-04-18] MEDS: buPROPion 75 MG TAB PO SCH (08:32)
[2016-04-18] MEDS: SERTRALINE HCL 100 MG TAB PO SCH (08:32)
[2016-04-18] MEDS: CALCIUM CARBONATE 500 MG TAB PO SCH (08:32)
[2016-04-18 08:58] VITALS: BP 150/83; PULSE 70; RESP 24; TEMP 98; O2SAT 94
--- NOTE | 2016-04-18 14:27 | GDS ---
[f rep st] DISCHARGE SUMMARY DISCHARGE DIAGNOSES: 1. New onset atrial fibrillation. 2. Coronary artery disease. 3. History of pulmonic stenosis. 4. Chronic hypoxemic respiratory failure. 5. Severe pulmonary hypertension. 6. Elevated, paralyzed left hemidiaphragm. CONSULTATIONS: Cardiology. PROCEDURES: 1. Cardiac cath 04/16/2016: [id number] coronary artery disease with maximal luminal stenosis of 50% and a small ostial diagonal vessel, 25% mid LAD and 30% mid right coronary artery disease. 2. Chest CTA 04/17/2016: Enlarged pulmonary arteries consistent with pulmonary hypertension. No pul monary embolus. Chronically marked elevation of left hemidiaphragm. HPI: Patient is a 70-year-old female with history of COPD, chronic hypoxemic respiratory failure, pr esenting with shortness of breath that was worsened with exertion. This was also associated with earlene st heaviness and dizziness. She denies recent lower extremity edema and has been adherent to all of her home medications. She does not have overt chest pain. No cough, fevers, chills, or sweats. HOSPITAL COURSE: 1. Atrial fibrillation: This is new with RVR. Patient underwent successful cardioversion on 2016. Continue Coreg and Eliquis. 2. Severe pulmonary hypertension:. 3. New atrial fibrillation. 4. Severe pulmonary hypertension. PA pressure was noted to be 72 mmHg. Cardiology was concerned gi ida that she does have a significantly severe enlarged pulmonary artery. There was no evidence of a pulmonary embolism on CT. She does have significant pulmonic valve stenosis on ANETTE, but the valve op ened normally. 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 She also has an elevated, paralyzed left hemidiaphragm which is causing some degree of restrictive lung disease. We recommend the patient be evaluated by the Pulmonary Hypertension Clinic and Congenital H eart Clinic at [facility]. I provided those names and phone numbers. 5. Current chronic hypoxemic respiratory failure: Stable her on her home O2. 6. CAD: Cath showed [id number] coronary disease. Continue medical management with aspirin, beta-costa, and statin. 7. Compensated systolic heart failure: EF was 35%: Patient is euvolemic. Will continue Coreg and Lasix. Consider MELISSA-inhibitor as an outpatient. 8. COPD: Continue inhalers. 9. Depression: Consider Zoloft. DISPOSITION: Patient is stable for discharge. FOLLOWUP: 1. Pulmonary Hypertension Clinic at [facility]. 2. Congenital Heart Clinic at [facility] with Dr. Dillan Zendejas. 3. Follow up with her PCP. /[id number]/MODL
== END 2016-04-18 11:21 | disposition home or self-care (01) | DRG 287 ==
LOC: CED 12:39 → CEDHOLD 14:52 → F1N 17:43 → OBSVTOIN 04-16 10:37 → F2W 04-16 12:05
PROVIDERS: ADMIT Internal Medicine; ATTEND Internal Medicine
PROC: B2151ZZ Fluoroscopy of Left Heart using Low Osmolar Contrast (ICD-10-PCS; principal; 2016-04-16)
PROC: B245ZZ4 Ultrasonography of Left Heart, Transesophageal (ICD-10-PCS; principal; 2016-04-16)
PROC: B2111ZZ Fluoroscopy of Multiple Coronary Arteries using Low Osmolar Contrast (ICD-10-PCS; principal; 2016-04-16)
PROC: 4A023N8 Measurement of Cardiac Sampling and Pressure, Bilateral, Percutaneous Approach (ICD-10-PCS; principal; 2016-04-16)
PROC: 5A2204Z Restoration of Cardiac Rhythm, Single (ICD-10-PCS; principal; 2016-04-16)
DX: I48.91 Unspecified atrial fibrillation (principal); J96.11 Chronic respiratory failure with hypoxia; I50.20 Unspecified systolic (congestive) heart failure; I44.7 Left bundle-branch block, unspecified; I25.10 Atherosclerotic heart disease of native coronary artery without angina pectoris; E11.9 Type 2 diabetes mellitus without complications; J44.9 Chronic obstructive pulmonary disease, unspecified; F10.21 Alcohol dependence, in remission; F32.9 Major depressive disorder, single episode, unspecified; I27.2 Other secondary pulmonary hypertension; J98.6 Disorders of diaphragm; Z79.82 Long term (current) use of aspirin; Z87.891 Personal history of nicotine dependence; Z85.3 Personal history of malignant neoplasm of breast; Z82.49 Family history of ischemic heart disease and other diseases of the circulatory system; Z79.51 Long term (current) use of inhaled steroids
CPT/HCPCS: 71020-PO; 80048-PO; 83880-PO; 84484-PO; 85025-PO; 85378-PO; 85610-PO; 85730-PO; 96372-PO; 96374-PO; C1769; G0378; G0463-PO; J1644; J1650; J2250; J3010; Q9967

== ENCOUNTER → 2016-11-12 | Outpatient (CLI) | payer OTHER | LOC: CIMAGING 10:03 | PROVIDERS: ATTEND Family Medicine | DX: Z12.31 Encounter for screening mammogram for malignant neoplasm of breast (principal) | CPT/HCPCS: G0202 ==

== ENCOUNTER → 2016-12-29 | Outpatient (CLI) | payer OTHER | LOC: FCPNEURO 21:00 | PROVIDERS: ATTEND Internal Medicine Pulmonary Disease | DX: G47.33 Obstructive sleep apnea (adult) (pediatric) (principal); G47.36 Sleep related hypoventilation in conditions classified elsewhere ==

== ENCOUNTER → 2017-11-25 | Outpatient (CLI) | payer OTHER | LOC: CIMAGING 08:20 | PROVIDERS: ATTEND Family Medicine | DX: Z12.31 Encounter for screening mammogram for malignant neoplasm of breast (principal); Z80.3 Family history of malignant neoplasm of breast ==

== ENCOUNTER → 2017-12-05 | Outpatient (CLI) | payer OTHER | LOC: CIMAGING 13:21 | PROVIDERS: ATTEND Family Medicine | DX: R92.0 Mammographic microcalcification found on diagnostic imaging of breast (principal) | CPT/HCPCS: 76641-PO ==

== ENCOUNTER → 2018-05-29 | Outpatient (CLI) | payer OTHER | LOC: FIMAGING 10:14 | PROVIDERS: ATTEND Family Medicine | DX: R92.0 Mammographic microcalcification found on diagnostic imaging of breast (principal); Z85.3 Personal history of malignant neoplasm of breast ==

== ENCOUNTER → 2018-06-20 | Day surgery (SDC) | payer OTHER ==
[~2018-06-20] MED LIST: BUPIVACAINE 0.5% 30 ML SDV ONE; LIDOCAINE 1% 300 MG/30 ML SDV ONE; THROMBIN (BOVINE) 5,000 UNIT VIAL TP ONE
== END | disposition home or self-care (01) ==
LOC: FIMAGING 07:21
PROVIDERS: ATTEND Family Medicine
PROC: 0HBU3ZX Excision of Left Breast, Percutaneous Approach, Diagnostic (ICD-10-PCS; principal; 2018-06-20)
DX: D24.2 Benign neoplasm of left breast (principal)